=== PATIENT | male | born 1950 | race Caucasian/White ===

== ENCOUNTER 2017-06-14 10:40 | Day surgery (SDC) | payer OTHER, BC ==
[~2017-06-14] VITALS: Ht 170.2 cm; Wt 117.0 kg
[~2017-06-14 10:40] MED LIST: ALDACTAZIDE 251 EACH PO; ASPIR 8181 M1 PO; CENTRUM SILVER1 EAC3 PO; COZAAR50 MG PO; FISH OIL 1,2001 EAC4 PO; MOBIC15 MG PO; OSTEO BI-FLEX1 EAC1 PO; PRAVACHOL40 MG PO; PRILOSEC20 MG PO; PROSCAR5 MG PO
[2017-06-14 11:19] VITALS: BP 143/75
[2017-06-14 14:50] VITALS: BP 161/72
[2017-06-14 15:30] VITALS: BP 143/76
== END 2017-06-14 15:35 | disposition home or self-care (01) ==
LOC: SDC 10:40
DX: H33.021 Retinal detachment with multiple breaks, right eye (principal); I10 Essential (primary) hypertension; G47.33 Obstructive sleep apnea (adult) (pediatric); E66.9 Obesity, unspecified; Z68.39 Body mass index [BMI] 39.0-39.9, adult; Z87.891 Personal history of nicotine dependence
CPT/HCPCS: J0690; J3300